=== PATIENT | male | born 1975 | race Caucasian/White ===

== ENCOUNTER 2017-09-02 11:30 | Outpatient (RCR) | payer OTHER | END 2017-09-02 12:00 | disposition home or self-care (01) | LOC: PT 11:30 | DX: S39.011D Strain of muscle, fascia and tendon of abdomen, subsequent encounter (principal); Y93.B9 Activity, other involving muscle strengthening exercises; Y92.84 Military training ground as the place of occurrence of the external cause; Y99.1 Military activity ==

== ENCOUNTER → 2022-11-16 | Day surgery (SDC) | payer OTHER | END | disposition home or self-care (01) | LOC: MSO 09:09 | DX: Z12.11 Encounter for screening for malignant neoplasm of colon (principal) | CPT/HCPCS: 00812; J2704; J3010; J7120 ==